=== PATIENT | female | born 1955 | race Caucasian/White ===

== ENCOUNTER 2024-04-15 05:53 | Day surgery (SDC) | payer MEDICARE ==
[~2024-04-15] VITALS: Ht 160 cm; Wt 97.1 kg
[2024-04-15] VITALS (11 sets, daily range): BP systolic 98–129; BP diastolic 43–58; PULSE 72–79; RESP 15–17
[~2024-04-15 05:53] MED LIST: LETR2.5T7 PO; LOSA100T59 PO; METF-446 PO; MULT-1367 PO; PRAV20TA4 PO; VIT1CAPS47 PO
[2024-04-15] MEDS: 0.9%NACL 1000ML 1,000 ML IV ONE (06:30)
[2024-04-15] MEDS ORDERED: PROPOFOL 10 MG/ML 20ML VIAL IV ONE (07:11)
[2024-04-15] MEDS ORDERED: LIDOCAINE HCL 1% 20 ML VIAL ONE (07:12)
== END 2024-04-15 08:43 | disposition home or self-care (01) ==
LOC: DAH 05:53 → ENDO 05:53
PROVIDERS: ATTEND Internal Medicine Gastroenterology
DX: Z12.11 Encounter for screening for malignant neoplasm of colon (principal); K57.30 Diverticulosis of large intestine without perforation or abscess without bleeding; K64.1 Second degree hemorrhoids; E11.9 Type 2 diabetes mellitus without complications; I10 Essential (primary) hypertension; Z86.010 Personal history of colon polyps; Z80.9 Family history of malignant neoplasm, unspecified; Z87.891 Personal history of nicotine dependence; Z79.84 Long term (current) use of oral hypoglycemic drugs; Z79.899 Other long term (current) drug therapy; Z98.890 Other specified postprocedural states
CPT/HCPCS: 82948 ×2; G0105; J7030; J2704; A4620; A4215 ×2; A4223; A4222; A4221; A4663; A4606; J3490